=== PATIENT | male | born 1965 | race African-American/Black ===

== ENCOUNTER 2024-10-29 06:40 | Emergency (ER) | payer OTHER ==
[~2024-10-29] VITALS: Ht 167.6 cm; Wt 78.0 kg
[2024-10-29 07:14] VITALS: BP 102/77; O2SAT 99
[2024-10-29] MEDS: IBUPROFEN 600MG TABLET PO ONE (08:30)
[2024-10-29 09:14] VITALS: PULSE 72; RESP 16; TEMP 36.55848; O2SAT 100
== END 2024-10-29 09:19 | disposition home or self-care (01) ==
LOC: ER 06:40
DX: M25.521 Pain in right elbow (principal); I10 Essential (primary) hypertension; V49.49XA Driver injured in collision with other motor vehicles in traffic accident, initial encounter; Y93.89 Activity, other specified; Y92.89 Other specified places as the place of occurrence of the external cause; Y99.8 Other external cause status
CPT/HCPCS: 73080; 99283